=== PATIENT | male | born 1995 | race Two or more races ===

== ENCOUNTER 2024-06-20 09:57 | Emergency (ER) | payer OTHER ==
[~2024-06-20] VITALS: Ht 190.5 cm; Wt 96.2 kg
[2024-06-20] MEDS ORDERED: METHYLPREDNISOLONE SOD SUCC 125 MG VIAL IV ONE (11:15)
[2024-06-20] MEDS ORDERED: METHYLPREDNISOLONE SOD SUCC 40 MG VIAL ONE (11:15)
[2024-06-20] MEDS ORDERED: FAMOTIDINE/PF 20 MG/2 ML VIAL IV PUSH ONE (11:15)
[2024-06-20] MEDS ORDERED: FAMOTIDINE/PF 20 MG/2 ML VIAL ONE (11:16)
[2024-06-20 11:46] LABS: HEMATOCRIT 46.5 % (39.0-48.0); HEMOGLOBIN 15.7 g/dL (13-16.00); RED BLOOD COUNT 5.71 M/uL (4.00-6.00)
[2024-06-20 11:47] LABS: MEAN CELL VOLUME 81.5 fL (80.0-100.00); MEAN CORPUSCULAR HEMOGLOBIN 27.6 pg (27.00-32.0); MEAN CORPUSCULAR HGB CONC 33.9 g/dl (32.0-36.0); PLATELET COUNT 234 K/uL (150-450); RED CELL DISTRIBUTION WIDTH 13.6 % (11.5-14.5)
[2024-06-20 12:09] LABS: INR 1.15; PARTIAL THROMBOPLASTIN TIME 29.3 SECONDS (22.0-34.0); PROTHROMBIN TIME 12.4 SECONDS (9.0-11.5)
[2024-06-20 12:14] LABS: BILIRUBIN TOTAL 1.3 mg/dL (0.3-1.2); CALCIUM 9.1 mg/dL (8.5-10.1); CREATININE SERUM 1.44 mg/dL (0.70-1.30); GFR 58.85; GLOBULINA 3.9 G/DL (2.4-3.5); POTASSIUM 3.61 mEq/L (3.5-5.1); TOTAL PROTEIN 7.9 gm/dL (6.4-8.2)
== END 2024-06-20 13:55 | disposition home or self-care (01) ==
LOC: ER 09:59
PROVIDERS: General Practice
DX: R55 Syncope and collapse (principal); L50.9 Urticaria, unspecified; Z20.822 Contact with and (suspected) exposure to COVID-19

== ENCOUNTER 2024-06-22 01:10 | Emergency (ER) | payer OTHER ==
[~2024-06-22] VITALS: Ht 188 cm; Wt 95.3 kg
[2024-06-22] MEDS ORDERED: DIPHENHYDRAMINE HCL 50 MG/ML VIAL 1ML IV STA (03:08)
[2024-06-22] MEDS ORDERED: METHYLPREDNISOLONE SOD SUCC 125 MG VIAL IV STA (03:09)
[2024-06-22] MEDS ORDERED: EPINEPHRINE HCL/PF 1 MG/ML AMPUL SUBCUTANEO STA (03:09)
[2024-06-22] MEDS ORDERED: FAMOTIDINE/PF 20 MG/2 ML VIAL IV PUSH STA (03:09)
[2024-06-22] MEDS ORDERED: EPINEPHRINE HCL/PF 1 MG/ML AMPUL ONE ×2 (03:15→09:05)
[2024-06-22] MEDS ORDERED: METHYLPREDNISOLONE SOD SUCC 125 MG VIAL ONE ×2 (03:15→09:05)
[2024-06-22] MEDS ORDERED: DIPHENHYDRAMINE HCL 50 MG/ML VIAL 1ML ONE ×2 (03:15→09:05)
[2024-06-22] MEDS ORDERED: FAMOTIDINE/PF 20 MG/2 ML VIAL ONE ×2 (03:16→09:05)
[2024-06-22] MEDS ORDERED: EPINEPHRINE HCL/PF 1 MG/ML AMPUL SUBCUTANEO ONE (09:00)
[2024-06-22] MEDS ORDERED: DIPHENHYDRAMINE HCL 50 MG/ML VIAL 1ML IV ONE (09:00)
[2024-06-22] MEDS ORDERED: METHYLPREDNISOLONE SOD SUCC 125 MG VIAL IV ONE (09:00)
[2024-06-22] MEDS ORDERED: FAMOTIDINE/PF 20 MG/2 ML VIAL IV PUSH ONE (09:00)
== END 2024-06-22 10:36 | disposition home or self-care (01) ==
LOC: ER 01:11
DX: L50.8 Other urticaria (principal)